=== PATIENT | male | born 2000 | race Caucasian/White ===

== ENCOUNTER 2021-01-13 11:33 | Emergency (ER) | payer OTHER ==
[~2021-01-13] VITALS: Ht 182 cm; Wt 84.0 kg
[2021-01-13 11:40] VITALS: BP 125/80
[2021-01-13] MEDS ORDERED: IBUPROFEN 800 MG (MOTRIN) TAB PO ONE (11:45)
[2021-01-13] MEDS ORDERED: HYDROcodone/APAP 5 MG/325 MG (LORTAB) TAB PO ONE (11:45)
--- NOTE | 2021-01-13 11:46 | ED Lower Extremity ---
General Chief Complaint: Lower Extremity Stated Complaint: RIGHT LEG, HEARD POP IN KNEE/SWELLING/PAIN Source: patient Exam Limitations: no limitations (NEFTALI BLAS APRN) History of Present Illness Date Seen by Provider: January 13, 2021 Time Seen by Provider: 11:44 Initial Comments To ER by private vehicle with reports of right knee pain after a sudden popping sensation. This occurred during a baseball game just prior to arrival. He goes to the [facility] [employer] and is here for a baseball tournament. No other injury. He intends to return to [place] on Thursday of this week (today being Thursday) Onset: just prior to arrival Severity: moderate Pain/Injury Location: right knee Method of Injury: sports injury Modifying Factors: Worse With Movement (NEFTALI BLAS APRN) Allergies and Home Medications Allergies Coded Allergies: No Known Drug Allergies (Unverified , 01/13/21) Home Medications Hydrocodone/Acetaminophen 1 Each Tablet, 1 TAB PO Q4H PRN for PAIN-MODERATE (5- 7) . Prescribed by: NEFTALI BLAS on 01/13/21 1315 Last Action: New Order Patient Home Medication List Home Medication List Reviewed: Yes (NEFTALI BLAS APRN) Review of Systems Constitutional: see HPI EENTM: see HPI Respiratory: no symptoms reported Cardiovascular: no symptoms reported Genitourinary: no symptoms reported Musculoskeletal: see HPI Skin: no symptoms reported Psychiatric/Neurological: No Symptoms Reported (NEFTALI BLAS APRN) Physical Exam Vital Signs Vital Signs - First Documented 01/13/21 11:40 Temp 36.9 Pulse 86 Resp 18 B/P (MAP) 125/80 (95) Pulse Ox 99 (MIGUEL ANGEL LACEY MD) Vital Signs Capillary Refill : (NEFTALI BLAS APRN) Height, Weight, BMI Height: '" Weight: lbs. oz. kg; BMI Method: General Appearance: WD/WN, no apparent distress HEENT: PERRL/EOMI, normal ENT inspection Respiratory: no respiratory distress, no accessory muscle use Hips: bilateral hip non-tender, bilateral hip normal inspection, bilateral hip normal range of motion Legs: bilateral leg non-tender, bilateral leg normal inspection, bilateral leg normal range of motion Knees: right knee pain, right knee soft tissue tenderness, right knee swelling, right knee other (There is no gross instability of the knee though exam is limited secondary to pain) Ankles: bilateral ankle non-tender, bilateral ankle normal inspection, bilateral ankle normal range of motion Feet: bilateral foot non-tender, bilateral foot normal inspection, bilateral foot normal range of motion Neurologic/Psychiatric: alert, normal mood/affect Skin: normal color Strong dorsalis pedis pulse on the right (NEFTALI BLAS APRN) Progress/Results/Core Measures Results/Orders Vital Signs/I&O 01/13/21 11:40 Temp 36.9 Pulse 86 Resp 18 B/P (MAP) 125/80 (95) Pulse Ox 99 (MIGUEL ANGEL LACEY MD) Progress Progress Note : Progress Note I was physically present in the emergency department as the attending physician during the care of this patient, but I was not directly involved in this patient's care. (MIGUEL ANGEL LACEY MD) Departure Communication (Admissions) Since he is not from here and will be returning to [place] in 3 days I will have him follow-up with his primary care provider or student health at his [place] [facility] to schedule MRI of the knee. In the meantime we gave him crutches and a knee immobilizer. (NEFTALI BLAS APRN) Impression Primary Impression: Internal derangement of right knee Disposition: HOME, SELF-CARE Condition: Stable Departure-Patient Inst. Decision time for Depature: 12:52 (NEFTALI BLAS APRN) Patient Instructions: Internal Derangement of the Knee Add. Discharge Instructions: 1. Ice pack to the knee. Do this for about an hour at a time a couple of times a day. Use the crutches for the next week or so. You can stop using them when the pain feels better. Wear the knee immobilizer for knee stability for the next few days. Follow-up with your primary care provider or student health physician once you arrive home on Thursday or . If you have persistent symptoms you will need an MRI of the knee. All discharge instructions reviewed with patient and/or family. Voiced understanding. Scripts Hydrocodone/Acetaminophen (Hydrocodone-Acetamin 5-325 mg) 1 Each Tablet 1 TAB PO Q4H PRN for PAIN-MODERATE (5-7), #10 TAB . Prov: NEFTALI BLAS APRN 01/13/21 Work/School Note: Work Release Form Date Seen in the Emergency Department: January 13, 2021 Return to Work: January 14, 2021 Restrictions: No PE-Until Released, No Sports-Until Released NEFTALI BLAS APRN January 13, 2021 11:46 MIGUEL ANGEL LACEY MD Jan 15, 2021 07:26
--- NOTE | 2021-01-13 12:25 | Diagnostic Imaging Report ---
Indication: Right knee pain AP, oblique and lateral views of the right knee are obtained. FINDINGS: No acute fracture or dislocation is identified. No abnormal lytic or sclerotic focus is seen, and there is no radiopaque foreign body. IMPRESSION: No acute abnormality. Dictated by: Dictated on workstation # [id number]
[2021-01-13] MEDS ORDERED: ACHD5005 PO ×2 (12:55→13:15)
== END 2021-01-13 12:59 | disposition home or self-care (01) ==
LOC: ER 11:36
DX: M23.91 Unspecified internal derangement of right knee (principal); X58.XXXA Exposure to other specified factors, initial encounter; Y93.64 Activity, baseball
CPT/HCPCS: 73562; 99282; L1830

== ENCOUNTER → 2021-01-16 | Outpatient (CLI) | payer OTHER ==
[~2021-01-16] MED LIST: ACHD5005 PO
--- NOTE | 2021-01-16 17:27 | Diagnostic Imaging Report ---
EXAMINATION: Magnetic resonance imaging of the right knee without intravenous contrast DATE: March 18, 2021. COMPARISON: Right knee radiographs January 13, 2021. INDICATION: 20-year-old male, right knee pain and swelling. Recent baseball injury. TECHNIQUE: Multiplanar, multisequence non contrast enhanced MR imaging was accomplished. FINDINGS: MENISCI: The medial meniscus is intact. The lateral meniscus is intact. LIGAMENTS AND TENDONS: The anterior and posterior cruciate ligaments are intact. The medial collateral ligament is intact. The iliotibial band, mid third lateral capsular ligament, fibular collateral ligament, biceps femoris tendon and conjoined tendon are intact. The quadriceps tendon and patella ligament are intact. JOINT: The articular cartilage surfaces are intact. There is a moderate sized knee joint effusion without identified intra-articular body or prominent synovitis. BONE: There is edema-like signal in the lateral femoral condyle without identified fracture line most consistent with a bone contusion. There is no bone contusion or fracture of the medial patella. Additional bone marrow signal evaluation is unremarkable. BURSAE AND SOFT TISSUES: There is prominent soft tissue edema adjacent to the knee joint and prominent fairly generalized subcutaneous edema. IMPRESSION: 1. Bone contusion of the lateral femoral condyle at its lateral aspect without acute fracture. No evidence of a transient patellar dislocation. 2. Intact menisci and cruciate ligaments. Additional ligament and tendons are intact. 3. Intact articular cartilage. Moderate sized knee joint effusion without identified intra-articular body or prominent synovitis. Dictated by: Dictated on workstation # [id number]
== END ==
LOC: RAD 15:30
PROVIDERS: ATTEND Nurse Practitioner Family
DX: S83.31XA Tear of articular cartilage of right knee, current, initial encounter (principal); Y93.64 Activity, baseball
CPT/HCPCS: 73721